=== PATIENT | female | born 1985 | race Caucasian/White ===

== ENCOUNTER 2017-02-16 09:40 | Observation (INO) | payer MEDICAID ==
[~2017-02-16] VITALS: Ht 162.6 cm; Wt 105.0 kg
--- NOTE | ~2017-02-16 | CON ---
PATIENT'S NAME: IDALIA DELACRUZ [facility] AGE: 31 Y [address] ROOM: [place] [address] LOCATION: GPCU ADMIT DATE: 02/16/2017 Consultation DISCHARGE DATE: 02/17/2017 FAMILY PHYSICIAN: Physician, Unknown ATTENDING PHYSICIAN: Dimitrios Neil V DATE OF CONSULTATION: 02/16/2017 REFERRING PHYSICIAN: Dimitrios Neil MD REASON FOR CONSULTATION: The patient needs dialysis treatment. HISTORY OF PRESENT ILLNESS: The patient is a 31-year-old white female with history of diabetes for the last 20 years. Six months ago, she came to know that she is in stage IV chronic kidney disease. Recently, she developed acute on chronic kidney disease and she had to restart on dialysis. She got admitted to the hospital with hyperglycemia. Her dialysis scheduled at Tuesdays, , and Saturdays, and therefore, I have been asked to see her for nephrology consultation. Her most recent creatinine is 3.4, but she has generalized edema. Her potassium is 4.2 and hemoglobin is 9.0. REVIEW OF SYSTEMS: GENERAL: She denies any fever, chills, or rigors. HEENT: Denies any sore throat or sinus congestion. CARDIOVASCULAR: Denies any chest pain or dyspnea on exertion. RESPIRATORY: Denies any cough or sputum production. GI: Denies any abdominal pain, nausea, or vomiting. : Denies any dysuria or frequency. MUSCULOSKELETAL: Denies any joint pain or swelling. SKIN: Denies any rash or pruritus. Denies any allergies or hay fever. ALLERGIES: NO KNOWN DRUG ALLERGIES. MEDICATIONS: 1. Tylenol p.r.n. 2. Vitamin D3 5000 International Units a day. 3. Ferrous sulfate 325 mg a day. 4. Neurontin 100 mg twice a day. 5. Famotidine 20 mg day. 6. Torsemide 100 mg a day. 7. Amlodipine 10 mg a day. 8. Carvedilol 12.5 mg twice a day. 9. Zofran 4 mg q.6 hours p.r.n. nausea. PATIENT'S NAME: IDALIA DELACRUZ [facility] AGE: 31 Y [address] ROOM: [place] [address] LOCATION: GPCU ADMIT DATE: 02/16/2017 Consultation DISCHARGE DATE: 02/17/2017 FAMILY PHYSICIAN: Physician, Unknown ATTENDING PHYSICIAN: Dimitrios Neil V 10. Multiple vitamin once a day. 11. Lantus 25 units q.a.m. PAST MEDICAL HISTORY: Diabetes mellitus, diabetic neuropathy, diabetic retinopathy, Charcot joint, and generalized edema probably from nephrotic syndrome. PAST SURGICAL HISTORY: Tunneled dialysis catheter placement, surgery in the right ankle for Charcot joint, and surgery in the left lung. SOCIAL HISTORY: She lives by herself. She has a son and she is not . No history of tobacco or alcohol. FAMILY HISTORY: No family history of kidney disease or dialysis. PHYSICAL EXAMINATION: GENERAL APPEARANCE: A 31-year-old white female, lying in the hospital chair, not in acute distress. VITAL SIGNS: Heart rate 92, systolic blood pressure of 159 and diastolic of 93, respiratory rate of 18. HEENT: Head is normocephalic. Pupils are round and equal. Normal eyelid and conjunctiva. Oral cavity clear. She has very poor-looking dentition. Trachea central. NECK: No thyromegaly. Unable to evaluate jugular venous distention. HEART: Sounds are audible in all the areas without any gallop or murmur. There is no pericardial rub. Pulses regular in rhythm. LUNGS: Bilaterally clear to auscultate. No intercostal retraction. She has a tunneled dialysis catheter in the chest. ABDOMEN: Soft and nontender. EXTREMITIES: She has no clubbing or cyanosis. SKIN: No sign of vasculitis. LABORATORY DATA: Blood work shows hemoglobin of 9.3, hematocrit 30. Sodium 142, potassium 4.2, chloride 98, calcium 8.6, BUN of 21, creatinine of 3.4, and bicarbonate 24.4. ASSESSMENT: 1. Acute kidney injury on chronic kidney disease, currently dialysis dependent. 2. Diabetes mellitus. 3. Stage IV chronic kidney disease from diabetes. 4. Diabetic nephropathy. PATIENT'S NAME: IDALIA DELACRUZ [facility] AGE: 31 Y [address] ROOM: [id number] [place], [place] [address] LOCATION: GPCU ADMIT DATE: 02/16/2017 Consultation DISCHARGE DATE: 02/17/2017 FAMILY PHYSICIAN: Physician, Unknown ATTENDING PHYSICIAN: Kaganas,Dimitrios V 5. Diabetic neuropathy. 6. Charcot joint by history. 7. Hypertension. 8. Generalized edema. PLAN: I will start her on dialysis sooner than later. She will be on 4K 2.2 calcium bath. We will try to ultrafiltrate 3-4 L. I would like to thank Dr. Neil for allowing me to participate in this patient's care. M MD ELIN BENAVIDEZ/taniya /[id number] d: 02/16/172110 t: 03/11/17 0934, CONSULTATION REPORT
--- NOTE | ~2017-02-16 | DS ---
PATIENT'S NAME: IDALIA DELACRUZ [facility] AGE: 31 Y [address] ROOM: [address] [address] LOCATION: GPCU ADMIT DATE: 02/16/2017 Discharge Summary DISCHARGE DATE: 02/17/2017 FAMILY PHYSICIAN: Physician, Unknown ATTENDING PHYSICIAN: Dimitrios Neil V DISCHARGE DIAGNOSES: 1. Profound hypoglycemia. 2. Insulin-dependent diabetes mellitus by history. 3. Hypertension. 4. End-stage renal disease. HOSPITAL COURSE: The patient was sent over for Deisy Lopez with a blood sugar that they could not elevate. She was in here briefly just since yesterday afternoon, has not required insulin since that time. At this time, she is only on 75 of D5W and has not required anything but diet to keep her blood sugars within the normal range. Blood sugars here in the hospital have been anywhere from 72-126. She looks and feels well this morning. We will discontinue her D5W, have her on a diabetic diet/usual diet and if she is still feeling well without needing glucose boluses this afternoon, she can leave for home. Discharge medications will be per med recon form. Note that I am having her hold the Toujeo indefinitely and just use her NovoLog sliding scale if she needs it, i.e., we will switch that to p.r.n. Diet will be 1600 calorie ADA and activity will be as tolerated. She will follow up with her renal doctor at her thrice weekly dialysis, and she can follow up with her primary physician as needed, otherwise. Note that she had a new catheter placed a couple of weeks ago parenthetically. PHYSICAL EXAMINATION: VITAL SIGNS: Note for today temperature is 99.7, BP 136/74, pulse 86, and respirations 14. CHEST: Clear. HEART: Regular rate and rhythm without murmur. ABDOMEN: Belly is soft, nontender. Good bowel sounds. EXTREMITIES: Quite swollen on the right lower extremity, more than the left, and she says this has improved slowly with dialysis. NEUROLOGIC: Beyond that, she is alert and functional. Note that this discharge process took less than 0.5 Hour. PATIENT'S NAME: IDALIA DELACRUZ [facility] AGE: 31 Y [address] ROOM: [address] [place], [place] [id number] LOCATION: GPCU ADMIT DATE: 02/16/2017 Discharge Summary DISCHARGE DATE: 02/17/2017 FAMILY PHYSICIAN: , Myla ATTENDING PHYSICIAN: Dimitrios Neil V MD JUANY RAMIREZ/modl /[id number] d: 02/18/17 0355 t: 03/04/17 1301, DISCHARGE SUMMARY
--- NOTE | ~2017-02-16 | HP ---
PATIENT'S NAME: IDALIA DELACRUZ [facility] AGE: 31 Y [address] ROOM: [place] [address] LOCATION: GPCU ADMIT DATE: 02/16/2017 History & Physical DISCHARGE DATE: FAMILY PHYSICIAN: PHYSICIAN, UNKNOWN ATTENDING PHYSICIAN: SP CANTRELL V DATE OF SERVICE: CHIEF COMPLAINT: Hypoglycemia. HISTORY OF PRESENT ILLNESS: The patient is a 31-year-old female with history of type 1 diabetes mellitus, hypertension, and ESRD with recent dialysis, who presents here from [facility] with hypoglycemia. The patient reports that in the past few weeks, her insulin use had to be cut down due to few episodes of hypoglycemia. However, today, the patient was noted to be unresponsive and was brought in twice to the emergency department with hypoglycemia with blood glucose in the 30s. On second evaluation, the patient was given D50 and was started on D5W, and was transferred to our facility for further care. The patient currently denies chest pain, shortness of breath, abdominal pain, nausea, vomiting, fever, chills, productive cough, diarrhea, or constipation. Of note, the patient also complained of chest pain. In [facility] Emergency Department, she described pleuritic chest pain. However, the patient denies any pleuritic chest pain now. The patient and had tunneled Vas-Cath placed last week. She gets her dialysis Saturday, , and Saturday. PAST MEDICAL HISTORY: 1. Type I diabetes mellitus. 2. Hypertension. 3. Charcot foot. PAST SURGICAL HISTORY: 1. Charcot foot repair. 2. VATS. 3. Tunneled catheter placement. FAMILY HISTORY: Father has hypertension. Mother has ulcerative colitis. SOCIAL HISTORY: The patient does not work. The patient has a 10-year-old kid. Denies smoking PATIENT'S NAME: IDALIA DELACRUZ [facility] AGE: 31 Y [address] ROOM: [place] [address] LOCATION: GPCU ADMIT DATE: 02/16/2017 History & Physical DISCHARGE DATE: FAMILY PHYSICIAN: PHYSICIAN, UNKNOWN ATTENDING PHYSICIAN: SP CANTRELL V or drinking. ALLERGIES: THE PATIENT GETS ALLERGY TO . MEDICATIONS: Currently being reconciled. REVIEW OF SYSTEMS: All systems have been reviewed and are negative except for what I mentioned in the HPI. PHYSICAL EXAMINATION: VITAL SIGNS: Afebrile, blood pressure 185/108, heart rate of 93, respiratory rate of 15, and saturating 97% on room air. GENERAL APPEARANCE: The patient is obese, in no acute distress, lying on bed. HEAD: Normocephalic and atraumatic. EYES: No eye discharge. EARS: No ear discharge. ORAL CAVITY: Moist oral cavity. CHEST: Bibasilar rales. HEART: Regular rate rhythm. Grade 1 systolic murmur heard on second left intercostal. ABDOMEN: Soft, nontender, and nondistended. SKIN: Warm to touch. EXTREMITIES: Pitting edema 3+ bilaterally. TRANSFORMER REPAIRER: The patient is alert and oriented x3. Motor and sensory grossly intact. LABORATORY DATA: Labs done today at [facility] shows sodium of 142, potassium 4.2, glucose of 39, BUN of 21, and creatinine of 3.4. White blood cells 9.5, hemoglobin of 9, and platelet of 204 with MCV of 95.9. IMAGING: EKG shows sinus rhythm with no ischemic changes. Chest x-ray done at the outside hospital, shows pulmonary edema. ASSESSMENT AND PLAN: 1. Hypoglycemia, etiology most likely secondary to insulin use on the phase of ongoing chronic kidney disease. Current blood glucose level is 77. We will hold insulin use. We will start D5W and have serial Accu-Cheks. 2. Congestive heart failure, most likely secondary to cardiorenal. Physical examination shows bibasilar rales. X-ray shows pulmonary edema and also PATIENT'S NAME: IDALIA DELACRUZ [facility] AGE: 31 Y [address] ROOM: [address] [address] [facility] ADMIT DATE: 02/16/2017 History & Physical DISCHARGE DATE: FAMILY PHYSICIAN: PHYSICIAN, UNKNOWN ATTENDING PHYSICIAN: SP CANTRELL V the patient has bilateral pitting edema. Blood pressure uncontrolled. We will acquire dialysis today, should help with fluid overload. Also, we will acquire echocardiogram to further investigate ejection fraction. To continue as the patient is still making urine. 3. Diabetes mellitus type 1, holding insulin. See #1. 4. Pleuritic chest pain, resolved. EKG unremarkable. We will follow the patient clinically. Greater than 45 minutes was spent on the patient's care. 50% of the time was spent on the patient's direct care. Case was discussed with Dr. Rosenbaum, Nephrology. The patient will have dialysis today. The patient's questions were answered with satisfaction. MD DAVID MADRID/taniya /[id number] D: 1 T: HISTORY & PHYSICAL
[2017-02-16] MEDS ORDERED: TYLENOL325 MG PO (09:50)
[2017-02-16] MEDS ORDERED: VITAMIN D35000 UNI1 PO (09:51)
[2017-02-16] MEDS ORDERED: FEOSOL325 MG PO (09:51)
[2017-02-16] MEDS ORDERED: NEURONTIN100 MG PO (09:52)
[2017-02-16] MEDS ORDERED: NOVOLOG FL100 UNIT/1 SUB-Q (09:53)
[2017-02-16] MEDS ORDERED: TOUJEO SOL300 UNIT/1 SUB-Q (09:54)
[2017-02-16] MEDS ORDERED: ONE DAILY1 EACH PO (09:55)
[2017-02-16] MEDS ORDERED: ZOFRAN4 MG PO (09:56)
[2017-02-16] MEDS ORDERED: COREG12.5 MG PO (09:56)
[2017-02-16] MEDS ORDERED: NORVASC10 MG PO (09:57)
[2017-02-16] MEDS ORDERED: TORSEMIDE100 MG PO (09:58)
[2017-02-16] MEDS ORDERED: PEPCID20 MG PO (09:59)
--- NOTE | 2017-02-16 17:55 | NUR ---
PATIENT ADMITTED TODAY WITH HYPOGLYCEMIA, ALSO IN NEED OF DIALYSIS. WENT TO DIALYSIS TOOK 4LITERS OFF. BLOOD SUGARS IN THE 70'S DR. UZMA DUVALL. HAS D5W RUNNING AT 75ML/HOUR. ENCOURAGED TO EAT A GOOD SUPPER
--- NOTE | 2017-02-17 04:48 | NUR ---
Significant Event:A/Ox3. Low grade temps of 99.5-99.7. Sats low to mid 90s on RA. SBP 120-130s NSR HR 80s. 2-3+ edema toes^thighs R>L. Tunnelled dialysis line to R)subclavian. PIV to R)hand infusing D5W at 75ml/h. Accuchecks q3h. BS [phone]. Cooperative with cares. Follow up:Plan is for dialysis Saturday. Continue to monitor blood sugars.
[2017-02-17 05:45] LABS: CALCIUM 7.7 mg/dL (8.5-10.5); CREATININE 2.4 mg/dL (0.5-1.1); TOTAL BILIRUBIN 0.4 mg/dL (0.0-1.5); TOTAL PROTEIN 5.2 g/dL (6.0-8.4)
[2017-02-17] MEDS ORDERED: INSULIN SLIDING SUB-Q (15:13)
--- NOTE | 2017-02-17 16:51 | NUR ---
1545 PT DIMISSED TO HOME WITH MOM TO STAY WITH HER TONIGH INCASE OF LOW BS AGAIN TO NIGHT IN THE NIGHT, LIKE WHAT BROGHT HER HERE TO BEGIN WITH. AT TIME OF DC PT IS A/O PINK WARM AND DRY. LUNGS ARE CLEAR UPPER AND CLEAR DIMINISHED LOWER, ABDOMEN SOFT AND ROUND WITH PRESENT BOWEL SOUNDS, SHE HAS THE DIALYSIS LINE IN HERRT UPPER CHEST CLEAN DRY AND DRESSING INTACT, NO DRAINAGE. RADIAL PULSES PALPABLE, PEDAL ARE FAINT, SHE DOES HAVE 1-2+ GENERAL EDEMA ALL OVERAND MORE LIKE 3-4+ LOWER EXTREMITIES. DISMISSAL INSTRUCTION, MEDICATION INSTRUCTIONS, PRESCRIPTIONS, AND FOLLOW UP CARE AND APPOINTMENTS ALL WENT OVER WITH PT, VERBALIZES UNDERSTANDING.
== END 2017-02-17 13:45 | disposition disaster alternative care site (69) ==
LOC: GPCU 09:40
PROVIDERS: Internal Medicine; ADMIT Internal Medicine
DX: E10.649 Type 1 diabetes mellitus with hypoglycemia without coma (principal); E10.22 Type 1 diabetes mellitus with diabetic chronic kidney disease; I13.2 Hypertensive heart and chronic kidney disease with heart failure and with stage 5 chronic kidney disease, or end stage renal disease; I50.9 Heart failure, unspecified; N18.6 End stage renal disease; E10.21 Type 1 diabetes mellitus with diabetic nephropathy; N17.9 Acute kidney failure, unspecified; Z99.2 Dependence on renal dialysis; Z98.890 Other specified postprocedural states; Z79.4 Long term (current) use of insulin
CPT/HCPCS: J1644; J7060; Q4081